=== PATIENT | male | born 1995 | race Caucasian/White ===

== ENCOUNTER 2018-05-22 12:24 | Emergency (ER) | payer BC ==
[2018-05-22 12:34] VITALS: BP 159/85; PULSE 81; RESP 18; TEMP 98.4
--- NOTE | 2018-05-22 12:46 | ED ---
Upper Extremity HPI - General Chief Complaint: Extremity Injury, Upper Stated Complaint: Hand Injury Time Seen by Provider: 05/22/18 12:35 Source: patient, RN notes reviewed Mode of arrival: ambulatory Limitations: no limitations - History of Present Illness Initial Comments: This is a 23-year-old male who presents to the emergency department with chief complaint of right hand injury. Patient states last night he was at a [employer]. He states around midnight he fell and landed on a pile of rocks. He states that his right hand hyperflexed and he landed directly on it. Patient complains of pain to the lateral dorsal aspect of the right hand. Denies any wrist pain. Denies any other injuries or trauma. Denies recent fevers or chills, shortness of breath, abdominal pain, nausea or vomiting, numbness or tingling. - Related Data Home Medications Medication Instructions Recorded Confirmed No Known Home Medications 05/22/18 05/22/18 Allergies Allergy/AdvReac Type Severity Reaction Status Date / Time Sulfa (Sulfonamide Allergy Rash/Hives Verified 05/22/18 12:34 Antibiotics) Review of Systems ROS Statement: Those systems with pertinent positive or pertinent negative responses have been documented in the HPI. ROS Other: All systems not noted in ROS Statement are negative. Past Medical History Past Medical History: No Reported History History of Any Multi-Drug Resistant Organisms: None Reported Additional Past Surgical History / Comment(s): Testiular Torsion, Throat cycst, Multiple casts nor surgery Past Psychological History: No Psychological Hx Reported Smoking Status: Never smoker Past Alcohol Use History: Occasional Past Drug Use History: None Reported General Exam - General Exam Comments Initial Comments: General: Awake and alert, well-developed; in no apparent distress. HEENT: Head atraumatic, normocephalic. Pupils are equal, round and reactive to light. Extraocular movements intact. Oropharynx moist without erythema or exudate. Neck: Supple. Normal ROM. Cardiovascular: Regular rate and rhythm. No murmurs, rubs or gallops. Chest symmetrical. Respiratory: Lungs clear to auscultation bilaterally. No wheezes, rales or rhonchi. Normal respiratory effort with no use of accessory muscles. Musculoskeletal: Limited range of motion at the MCP joints of the right hand due to pain. There is tenderness along the fourth metacarpal with soft tissue swelling and ecchymosis overlying metacarpals 3, 4 and 5. Normal range of motion of the right wrist. No snuffbox tenderness. Sensation is intact. Radial pulses are 2+ equal and palpable bilaterally. Skin: [place], warm and dry without rashes. Neurological: Alert and oriented x3. CN II-XII grossly intact. Speech is fluent and answers are appropriate. No focal neuro deficits. Psychiatric: Normal mood and affect. No overt signs of depression or anxiety noted. Limitations: no limitations Course Vital Signs 05/22/18 12:29 Temperature 98.4 F Pulse Rate 81 Respiratory 18 Rate Blood Pressure 159/85 O2 Sat by Pulse 100 Oximetry Procedures - Orthopedic Splinting/Casting Injury #1 Side: right Upper Extremity Injury Location: hand Upper Extremity Immobilizer: ulnar gutter, synthetic pre-padded splint Medical Decision Making - Medical Decision Making This is a 23-year-old male who presents to the emergency department with chief complaint of right hand injury. There is soft tissue swelling, ecchymosis and tenderness along the fourth metacarpal on the right hand. Patient is neurovascularly intact. X-ray mid was reviewed and there is a mildly displaced oblique fracture of the fourth metacarpal. Ulnar gutter short arm OCL splint was placed and patient tolerated well without complication. Recommended follow- up with orthopedics within 1-2 days. Patient is in agreement and voices understanding. He is in no acute distress and will be discharged home at this time. All questions answered. - Radiology Data Radiology results: report reviewed, image reviewed X-ray right hand impression: Mildly displaced oblique fracture through the proximal diametaphysis of the fourth metacarpal. Disposition Clinical Impression: Fracture of fourth metacarpal bone of right hand Disposition: HOME SELF-CARE Condition: Good Instructions: Hand Fracture (ED) Additional Instructions: Please follow-up with Dr. Paredes or Dr. Johnson within 1-2 days. Please keep splint clean, dry and intact. May take ibuprofen or Tylenol as needed for pain. Please take medications as prescribed. Please follow up with primary care provider within 1-2 days. Return to emergency department if symptoms should worsen or any concerns arise. Is patient prescribed a controlled substance at d/c from ED?: No Referrals: None,Stated [Primary Care Provider] - 1-2 days Uli Johnson MD [STAFF PHYSICIAN] - 1-2 days Time of Disposition: 13:06
--- NOTE | 2018-05-22 13:13 | XR ---
EXAMINATION TYPE: XR hand complete RT , 3 VIEWS DATE OF EXAM ORDERED: 05/22/2018 HISTORY: pain. COMPARISON: None. FINDINGS: There is a mildly displaced, oblique fracture of the diametaphysis of the ring finger. No other definite fractures are seen. IMPRESSION: MILDLY DISPLACED, OBLIQUE FRACTURE THROUGH THE PROXIMAL DIAMETAPHYSIS OF THE FOURTH METACARPAL. CODE: INITIAL ENCOUNTER FOR CLOSED FRACTURE.
== END 2018-05-22 13:20 | disposition home or self-care (01) ==
LOC: EC 12:24
DX: S62.314A Displaced fracture of base of fourth metacarpal bone, right hand, initial encounter for closed fracture (principal); Z88.2 Allergy status to sulfonamides; W19.XXXA Unspecified fall, initial encounter; Y92.89 Other specified places as the place of occurrence of the external cause
CPT/HCPCS: 29125; 99283

== ENCOUNTER 2018-05-25 10:54 | Day surgery (SDC) | payer BC ==
[2018-05-23 15:47] VITALS: BMI 22.1
--- NOTE | 2018-05-25 08:15 | HP ---
HISTORY AND PHYSICAL CHIEF COMPLAINT: Right hand pain. 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 He notes he tripped, falling on his right hand, hitting a rock. He initially was seen in the emergency room and placed in a splint. He denies previous injury or problems. PAST MEDICAL HISTORY: Negative. PAST SURGICAL HISTORY: Significant for previous throat surgery. CURRENT ALLERGIES: Ibuprofen. ALLERGIES: He notes allergies to SULFA. FAMILY HISTORY: Family history is negative. SOCIAL HISTORY: Negative for current tobacco or alcohol use. REVIEW OF SYSTEMS: Sixteen-point review of systems otherwise reviewed and is noncontributory. PHYSICAL EXAMINATION: On examination, the patient is approximately 5 feet 9 inches, 150 pounds of mesomorphic habitus. HEENT exam is nonfocal. Neck is supple. He is nontender about the right shoulder, elbow and wrist. On examination of his right hand, he has moderate dorsal swelling. He is tender about the 4th metacarpal shaft. He has no rotational abnormality. He has moderate digital stiffness. Light touch is distally intact. X-rays of the right hand brought in with the patient from 05/22/2018 shows a spiral fracture of the fourth metacarpal shaft with 3 to 4 mm of shortening. IMPRESSION: Right fourth metacarpal spiral shaft fracture-displaced. RECOMMENDATIONS: I talked to the patient at length regarding his condition and treatment options. At this point, he opts to proceed with surgery. We will plan to proceed with closed reduction and percutaneous pinning of the right fourth metacarpal shaft fracture. We will likely perform that as an outpatient procedure. Risks and benefits were discussed at length in layman's terms. MMODL / IJN: [id number] /
[~2018-05-25 10:54] MED LIST: ceFAZolin 1,000 MG in DEXTROSE/WATER 1 50ML.BAG IV ONE
[2018-05-25] MEDS ORDERED: LACTATED RINGERS 1,000 ML IV ONE ×2 (11:40→14:26)
[2018-05-25] MEDS ORDERED: LIDOCAINE 1% 20 ML VIAL (10MG/ML) FOR IV START INTRADERMA ONE (11:41)
[2018-05-25] MEDS ORDERED: ONDANSETRON 4 MG/2 ML VIAL ONE (12:15)
[2018-05-25] MEDS ORDERED: MIDAZOLAM 2 MG/2 ML VIAL ONE ×2 (12:16→12:45)
[2018-05-25] MEDS ORDERED: DEXAMETHASONE SOD PHOSPHATE 10 MG/ML 1 ML VIAL IV ONE (12:22)
[2018-05-25] MEDS ORDERED: fentaNYL (PF) 50 MCG/ML 2 ML AMP ONE (12:45)
[2018-05-25] MEDS ORDERED: LIDOCAINE 1% INJ 10MG/ML (20 ML MDV) ONE (12:45)
[2018-05-25] MEDS ORDERED: PROPOFOL 10 MG/ML 20 ML VIAL IV ONE (12:45)
--- NOTE | 2018-05-25 13:49 | P.OP ---
Date of Procedure: 05/25/18 Preoperative Diagnosis: Displaced right fourth metacarpal shaft fracture Postoperative Diagnosis: Same Procedure(s) Performed: Closed reduction with percutaneous pinning right fourth metacarpal shaft fracture Implants: 0.054 inch K wire 3 Anesthesia: [place] Surgeon: Uli Johnson Estimated Blood Loss (ml): 1 Pathology: none sent Condition: stable Disposition: PACU Indications for Procedure: The patient's a 23-year-old male presents after injuring his right hand recently with a displaced spiral fracture of the right fourth metacarpal shaft. Significant shortening was noted on the x-ray. A discussion of the risks and benefits of operative intervention was made with the patient. He opted to proceed. Operative risks to include infection, neurovascular injury, development of nonunion/malunion, and possible need for subsequent procedures was discussed. Informed consent was obtained. Operative Findings: As below Description of Procedure: The patient was brought to the operating room, and after induction of general anesthesia the right upper extremity was prepped and draped in normal fashion. The fracture was reduced with longitudinal traction and manipulation. 3 K wires measuring 0.054 inch diameter were then placed starting along the ulnar aspect of the fifth metacarpal spanning the fifth metacarpal into the fourth metacarpal. Final fluoroscopic views to include AP, lateral and oblique view showed adequate reduction of the fracture and taoist of metacarpal length. The pins were clipped below the skin. A sterile dressing was applied in addition to an ulnar gutter splint with the hand in functional position. I did check to make sure there was no rotational abnormality as well. The patient was awoken from general anesthesia and transferred to recovery room in good condition. Blood loss was estimated at 1 mL. No complications were incurred.
[2018-05-25] MEDS: fentaNYL (PF) 50 MCG/ML 2 ML AMP IVP ONE ×2 (13:53→14:02)
[2018-05-25 14:00] VITALS: TEMP 97.3
[2018-05-25 14:04] VITALS: RESP 16
--- NOTE | 2018-05-25 14:05 | FL ---
EXAMINATION TYPE: FL guidance operating room DATE OF EXAM: 05/25/2018 HISTORY: Flouroscopy time 69 seconds of fluoroscopy provided. IMPRESSION: 1. Fluoroscopy time.
[2018-05-25] MEDS: HYDROmorphone 1 MG/ML 1 ML SYRINGE IVP ONE ×2 (14:11→14:19)
[2018-05-25] MEDS ORDERED: KETOROLAC 30 MG/ML 1 ML VIAL IVP ONE (14:23)
[2018-05-25] MEDS ORDERED: Acetaminophen-Codeine 300-30mg TAB PO ONE (15:05)
[2018-05-25 15:09] VITALS: BP 141/78; PULSE 81
== END 2018-05-25 15:57 | disposition home or self-care (01) ==
LOC: OR 10:54
PROVIDERS: ATTEND Orthopaedic Surgery
DX: S62.324A Displaced fracture of shaft of fourth metacarpal bone, right hand, initial encounter for closed fracture (principal); W01.198A Fall on same level from slipping, tripping and stumbling with subsequent striking against other object, initial encounter; Z79.1 Long term (current) use of non-steroidal anti-inflammatories (NSAID); Z88.2 Allergy status to sulfonamides
CPT/HCPCS: 73130; 26608; C1713; J2250; J1100; J2405; J2001; J3010; J1885; J1170; J2704